=== PATIENT | male | born 1970 | race Two or more races ===

== ENCOUNTER 2019-07-20 23:56 | Emergency (ER) | payer MEDICARE ==
[~2019-07-20] VITALS: Ht 198.1 cm; Wt 142.9 kg
[2019-07-20 23:56] VITALS: BP 152/99
--- NOTE | 2019-07-21 00:22 | NUR ---
SEEN AND EXAMINED BY
[2019-07-21] MEDS ORDERED: TDAP [DIPH/PERTUSSIS/TET] 0.5 ML VIAL IM ONE ×2 (00:30)
[2019-07-21] MEDS ORDERED: IBUPROFEN 600 MG TABLET PO ONE (00:30)
[2019-07-21] MEDS ORDERED: IBUPROFEN 400 MG TABLET PO ONE (00:30)
--- NOTE | 2019-07-21 00:32 | NUR ---
CONTINUOUS IMPROVEMENT FACILITATOR AT BEDSIDE FOR XRAY.
--- NOTE | 2019-07-21 01:20 | NUR ---
WOUND CLEANING DONE BY YARN FINISHER.
--- NOTE | 2019-07-21 01:53 | NUR ---
Patient discharged to home in stable condition. Written and verbal after care instructions given. Patient verbalizes understanding of instruction.
== END 2019-07-21 02:31 | disposition home or self-care (01) ==
LOC: ER 23:56
DX: S83.8X2A Sprain of other specified parts of left knee, initial encounter (principal); S83.8X1A Sprain of other specified parts of right knee, initial encounter; S93.491A Sprain of other ligament of right ankle, initial encounter; R56.9 Unspecified convulsions; I10 Essential (primary) hypertension; E11.9 Type 2 diabetes mellitus without complications; N19 Unspecified kidney failure; F10.10 Alcohol abuse, uncomplicated; Y90.9 Presence of alcohol in blood, level not specified; Z86.73 Personal history of transient ischemic attack (TIA), and cerebral infarction without residual deficits; W10.0XXA Fall (on)(from) escalator, initial encounter; Y93.89 Activity, other specified; Y92.89 Other specified places as the place of occurrence of the external cause; Y99.8 Other external cause status
CPT/HCPCS: 73564 ×2; 73610; 99283; A6403; 90715